=== PATIENT | male | born 2000 | race Caucasian/White ===

== ENCOUNTER 2024-04-26 18:52 | Emergency (ER) | payer BC, SELFPAY ==
[2024-04-26] VITALS (7 sets, daily range): BP systolic 123–145; BP diastolic 82–91; PULSE 96–121; RESP 15–26; TEMP 37.6; O2SAT 94–97
--- NOTE | ~2024-04-26 | XR_ITS ---
CHEST RADIOGRAPH, PA AND LATERAL CLINICAL HISTORY: cough, FEVER, BODY ACHES 3 DAYS . COMPARISON: 02/23/2013 TECHNIQUE: PA and lateral views of the chest. FINDINGS The cardiomediastinal silhouette is unremarkable. The lungs are clear. Visualized osseous structures and soft tissues are unremarkable. IMPRESSION: No focal infiltrate or effusion. Reviewed, dictated and finalized at location A. PHONE ORDER CLERK ROOM SERVICE
[2024-04-26] MEDS: ACETAMINOPHEN 500 MG TABLET 1000 MG PO (19:49)
[2024-04-26 19:57] LABS: Influenza A QL RT-PCR Negative (Negative); Influenza B QL RT-PCR Negative (Negative); RSV RNA, RT-PCR Negative (Negative); SARS-CoV-2 RNA PCR Negative (Negative)
--- NOTE | 2024-04-26 20:44 | ED.GENADULT ---
HPI - General Adult General Chief complaint: Upper Respiratory Infection Stated complaint: URI sx Time Seen by Provider: 04/26/24 19:25 History of Present Illness HPI narrative: Patient is a 24-year-old male who presents ER with fever. Ongoing over last 3 days. Associated with dry nonproductive cough. Mild body aches. Had a brother with viral illness recently. No diarrhea. No skin rashes. No chest pain. Last dose of him Tylenol or ibuprofen was at 9:00 a.m.. Related Data Allergies Allergy/AdvReac Type Severity Reaction Status Date / Time No Known Allergies Allergy Verified 04/26/24 19:48 Review of Systems Constitutional: Constitutional: Reports chills, Reports fatigue and Reports fever(s) ENT: Reports system reviewed and no additional complaints, except as documented Cardiovascular: Cardiovascular: Reports no additional cardiovascular complaints Respiratory: Respiratory: Denies chest congestion, Reports cough, Denies dyspnea and Denies wheezing PMFSH Past Medical History Medical History (Updated 04/26/24 @ 20:48 by Maykel Nieto MD) Healthy adult male Exam Narrative: GENERAL: Well-appearing, well-nourished, and in no acute distress. HEAD: Normocephalic, atraumatic. ENT: Mucous membranes moist. normal appearing posterior oropharynx. TMs normal bilaterally. CHEST: Clear to auscultation. No respiratory distress. HEART: Tachycardic and regular. Normal peripheral pulses. EXTREMITIES: Normal range of motion. No edema. SKIN: Warm, dry, no rash. NEURO: Alert and oriented x3. PSYCH: Normal mood and affect. Course Course Emergency Course: Patient resting comfortably. Viral swabs negative. Chest x-ray without pneumonia. Fever treated with Tylenol. Discharge. Vital Signs Vital signs: Vital Signs Temperature 99.7 F H 04/26/24 18:53 Pulse Rate 121 H 04/26/24 18:53 Respiratory Rate 16 04/26/24 18:53 Blood Pressure 145/88 H 04/26/24 18:53 Pulse Oximetry 96 04/26/24 18:53 Oxygen Delivery Room Air 04/26/24 18:53 Temperature 99.7 F H 04/26/24 18:53 Pulse Rate 110 H 04/26/24 19:14 Respiratory Rate 15 04/26/24 19:14 Blood Pressure 124/88 04/26/24 19:14 Pulse Oximetry 96 04/26/24 19:19 Oxygen Delivery Room Air 04/26/24 19:19 Medical Decision Making Vital Signs Vital Signs: Vital Signs Temperature 99.7 F H 04/26/24 18:53 Pulse Rate 121 H 04/26/24 18:53 Respiratory Rate 16 04/26/24 18:53 Blood Pressure 145/88 H 04/26/24 18:53 Pulse Oximetry 96 04/26/24 18:53 Oxygen Delivery Room Air 04/26/24 18:53 Temperature 99.7 F H 04/26/24 18:53 Pulse Rate 110 H 04/26/24 19:14 Respiratory Rate 15 04/26/24 19:14 Blood Pressure 124/88 04/26/24 19:14 Pulse Oximetry 96 04/26/24 19:19 Oxygen Delivery Room Air 04/26/24 19:19 Lab Data Labs: Lab Results 04/26/24 Range/Units 19:17 Influenza A (RT-PCR) Negative (Negative) Influenza B (RT-PCR) Negative (Negative) RSV (RT-PCR) Negative (Negative) SARS-CoV-2 RNA (RT-PCR) Negative (Negative) Imaging Data Radiologist's impression: ITS Impressions Chest X-Ray 04/26/24 20:58 IMPRESSION: No focal infiltrate or effusion. Discharge Plan Discharge Clinical Impression: Viral infection Patient Disposition: Home, Self-Care Condition: Stable Instructions: Viral Syndrome (ED) Additional Instructions: As discussed you have a viral illness. Unfortunately there are no specific medications we can give you to make the illness end faster. Antibiotics do not work for viral illnesses. However, you can take Acetaminophen or Ibuprofen to help with fevers and pain. Stay well hydrated and rested. Return to the emergency department if your fevers and chills continue to worse after 5 days, if you develop worsening cough with thick sputum, or are unable to stay hydrated. Contact your primary care provider in the next few days for a re-evaluation and to make sure your symptoms are improving. Follow-up/Referrals: UNKNOWN,DOCTOR [Primary Care Provider] - 1 Week
== END 2024-04-26 21:31 | disposition home or self-care (01) ==
PROVIDERS: Student in an Organized Health Care Education/Training Program; Emergency Provider Emergency Medicine
DX: B34.9 Viral infection, unspecified (principal); Z20.822 Contact with and (suspected) exposure to COVID-19
CPT/HCPCS: 71046; 87637; 99283; A9270